=== PATIENT | female | born 1960 | race Caucasian/White ===

== ENCOUNTER 2020-12-26 17:06 | Emergency (ER) | payer OTHER | END 2020-12-26 19:44 | disposition left against medical advice (07) | LOC: ER 17:08 | DX: R22.40 Localized swelling, mass and lump, unspecified lower limb (principal); Z53.21 Procedure and treatment not carried out due to patient leaving prior to being seen by health care provider ==

== ENCOUNTER 2023-09-29 11:43 | Outpatient (CLI) | payer MEDICAID | END 2023-09-29 23:59 | disposition home or self-care (01) | LOC: RAD 11:43 | PROVIDERS: ATTEND Student in an Organized Health Care Education/Training Program | DX: M47.812 Spondylosis without myelopathy or radiculopathy, cervical region (principal); M43.22 Fusion of spine, cervical region; M48.02 Spinal stenosis, cervical region; M54.2 Cervicalgia | CPT/HCPCS: 72040 ==

== ENCOUNTER 2024-07-31 09:26 | Inpatient (IN) | payer MEDICAID ==
[~2024-07-31] VITALS: Ht 172.7 cm; Wt 83.5 kg
[2024-07-31 10:52] LABS: BASOPHILS # (AUTO) 0.1 X10'3 (0-0.2); BASOPHILS % (AUTO) 0.5 % (0-1); EOSINOPHILS # (AUTO) 0.1 X10'3 (0-0.9); EOSINOPHILS % (AUTO) 0.7 % (0-6); HEMATOCRIT 40.2 % (35.0-45.0); HEMOGLOBIN 13.7 g/dl (12.0-16.0); LYMPHOCYTES # (AUTO) 1.4 X10'3 (1.1-4.8); LYMPHOCYTES % (AUTO) 13.1 % (21-51); MEAN CORPUSCULAR HEMOGLOBIN 33.7 PG (27.0-31.0); MEAN CORPUSCULAR HGB CONC 34.2 g/dL (33.0-36.5); MEAN CORPUSCULAR VOLUME 98.6 FL (78-98); MEAN PLATELET VOLUME 7.9 FL (7.4-10.4); MONOCYTES # (AUTO) 0.6 X10'3 (0-0.9); MONOCYTES % (AUTO) 5.8 % (2-12); NEUTROPHILS # (AUTO) 8.3 X10'3 (1.8-7.7); NEUTROPHILS % (AUTO) 79.9 % (42-75); PLATELET COUNT 274 X10'3 (140-440); RED BLOOD COUNT 4.07 X10'6 (4.20-5.60); WHITE BLOOD COUNT 10.4 X10'3 (4.5-11.0)
[2024-07-31 11:26] LABS: ALBUMIN 3.2 G/DL (3.4-5.0); ANION GAP 6 (8-16); BLOOD UREA NITROGEN 13 MG/DL (7-18); CHLORIDE 103 MMOL/L (99-107); CREATININE 0.65 MG/DL (0.40-0.90); GLUCOSE 89 MG/DL (70-104); PRO BRAIN NATRIURETIC PEPTIDE 59 PG/ML (0-125); SODIUM 141 MMOL/L (135-145); TOTAL CARBON DIOXIDE 31.9 MMOL/L (24-32); eCRCL 88 ML/MIN; eGFR > 90 ML/MIN
[2024-07-31 11:40] LABS: POTASSIUM 4.2 MMOL/L (3.5-5.1)
[2024-07-31 13:18] LABS: ALANINE AMINOTRANSFERASE 42 U/L (12-78); ALBUMIN/GLOBULIN RATIO 0.7 (1.1-1.5); ALKALINE PHOSPHATASE 114 IU/L (46-116); BILIRUBIN,TOTAL 0.7 MG/DL (0.1-1.0); TOTAL PROTEIN 7.6 G/DL (6.4-8.2)
[2024-07-31 13:26] LABS: ASPARTATE AMINO TRANSFERASE 35 U/L (10-37)
[2024-07-31] MEDS: predniSONE 20 mg tablet PO ONE (13:36)
[2024-07-31] MEDS: albuterol 2.5 MG/3 ML nebule NEB ONE (13:51)
[2024-07-31 13:53] VITALS: PULSE 97; RESP 14; RESP 15; O2SAT 98
[2024-07-31] MEDS: CefTRIAXone/D5W-Rocephin 1gm 50 ML IV ONE (15:54)
[2024-07-31] MEDS ORDERED: potassium Cl 20 mEq SR tablet PO PRN ×2 (16:55)
[2024-07-31] MEDS ORDERED: acetaminophen 325mg tablet PO PRN (16:55)
[2024-07-31] MEDS ORDERED: potassium Cl 40MEQ/1/2NS 520ml 520 ML IV PRN (16:55)
[2024-07-31] MEDS ORDERED: magnesium Cl slow-release 64mg tablet PO PRN (16:55)
[2024-07-31] MEDS ORDERED: magnesium hydroxide 30ml (MOM) UD suspension PO PRN (16:55)
[2024-07-31] MEDS ORDERED: magnesium sulf-water 4G/100mL 100 ML IV PRN (16:55)
[2024-07-31] MEDS ORDERED: mag hydrox/Alum hydrox/simeth 30ml oral suspension PO PRN (16:55)
[2024-07-31] MEDS ORDERED: ondansetron/PF 4mg/2ml inj IV PRN (16:55)
[2024-07-31] MEDS ORDERED: magnesium sulf-water 2g/50mL 50 ML IV PRN (16:55)
[2024-07-31] MEDS ORDERED: ipratropium/albuterol 3ml nebule NEB PRN (17:00)
[2024-07-31] MEDS ORDERED: azithromycin/NS 500mg/250ml 250 ML IV ONE (17:00)
[2024-07-31 17:25] LABS: THYROID STIMULATING HORMONE 0.76 ulU/ml (0.34-4.50)
[2024-07-31 17:41] LABS: BILIRUBIN,URINE NEGATIVE (Neg); CLARITY,URINE CLEAR (Clear); COLOR,URINE YELLOW (Yellow); GLUCOSE, URINE NEGATIVE (Neg); KETONES,URINE 15 mg/dl (Neg); LEUKOCYTE ESTERASE ,URINE NEGATIVE (Neg); NITRITES, URINE NEGATIVE (Neg); OCCULT BLOOD,URINE NEGATIVE (Neg); PROTEIN,URINE NEGATIVE (Neg); UROBILINOGEN,URINE 0.2 E.U/dL (0.2-1.0)
[2024-07-31 17:47] LABS: UA COLLECTION TYPE CLN CATCH MIDSTREAM
[2024-07-31 18:00] VITALS: BP 140/74; PULSE 104; RESP 18; TEMP 98.3; O2SAT 93
[2024-07-31 19:12] LABS: D-DIMER 8.98 MG/L FEU (0-0.50); PROTHROMBIN TIME 10.4 SECONDS (9.0-12.0)
[2024-07-31] MEDS ORDERED: iohexol 350MG/ML 100ml bottle IV ONE (19:27)
[2024-07-31] MEDS ORDERED: iohexol 350 MG/ML 50ML vial IV ONE (19:27)
[2024-07-31] MEDS: nicotine 21mg patch - 24 hr TD SCH (19:30)
[2024-07-31] MEDS: ipratropium/albuterol 3ml nebule NEB SCH (19:59)
[2024-07-31 20:00] VITALS: PULSE 101; RESP 16; RESP 20; O2SAT 98
[2024-07-31] MEDS: K and/or MAG REPLACEMENT MC SCH (20:00)
[2024-07-31 20:05] VITALS: PULSE 98; RESP 20
[2024-07-31] MEDS ORDERED: TIOT18CA3 INH (21:09)
[2024-07-31] MEDS ORDERED: LEVO137T2 PO (21:09)
[2024-07-31] MEDS ORDERED: FLUT1BLS7 PO (21:09)
[2024-07-31] MEDS ORDERED: ALBU10.7 PO (21:09)
[2024-07-31] MEDS ORDERED: ATOR-2 PO (21:09)
[2024-07-31] MEDS ORDERED: CARV3.1244 PO (21:09)
[2024-07-31] MEDS ORDERED: BUSP15TA7 PO (21:09)
[2024-07-31] MEDS ORDERED: PREG100C56 PO (21:09)
[2024-07-31] MEDS ORDERED: VALS80TA32 PO (21:10)
[2024-07-31] MEDS: DOXYCYCLINE 100MG CAPSULE PO SCH (21:19)
[2024-07-31] MEDS: methylPREDNISolone sod succ/PF 40mg inj. IV SCH (21:19)
[2024-07-31 22:00] VITALS: BP 138/88; PULSE 93; RESP 17; TEMP 97.9; O2SAT 94
[2024-08-01] VITALS (15 sets, daily range): BP systolic 115–131; BP diastolic 66–75; PULSE 82–109; RESP 16–21; TEMP 96.9–98; O2SAT 85–99
[2024-08-01] MEDS: acetaminophen 325mg tablet PO PRN (04:37)
[2024-08-01 05:55] LABS: BASOPHILS % (AUTO) 0.2 % (0-1); EOSINOPHILS % (AUTO) 0 % (0-6); HEMATOCRIT 34.5 % (35.0-45.0); HEMOGLOBIN 11.9 g/dl (12.0-16.0); LYMPHOCYTES # (AUTO) 0.5 X10'3 (1.1-4.8); LYMPHOCYTES % (AUTO) 4.6 % (21-51); MEAN CORPUSCULAR HEMOGLOBIN 33.6 PG (27.0-31.0); MEAN CORPUSCULAR HGB CONC 34.4 g/dL (33.0-36.5); MEAN CORPUSCULAR VOLUME 97.7 FL (78-98); MEAN PLATELET VOLUME 7.9 FL (7.4-10.4); MONOCYTES # (AUTO) 0.2 X10'3 (0-0.9); MONOCYTES % (AUTO) 1.8 % (2-12); NEUTROPHILS # (AUTO) 10.4 X10'3 (1.8-7.7); NEUTROPHILS % (AUTO) 93.4 % (42-75); PLATELET COUNT 224 X10'3 (140-440); RED BLOOD COUNT 3.53 X10'6 (4.20-5.60); RED CELL DISTRIBUTION WIDTH 15.4 % (11.5-14.5); WHITE BLOOD COUNT 11.1 X10'3 (4.5-11.0)
[2024-08-01 06:30] LABS: ALANINE AMINOTRANSFERASE 27 U/L (12-78); ALBUMIN 2.5 G/DL (3.4-5.0); ALBUMIN/GLOBULIN RATIO 0.6 (1.1-1.5); ALKALINE PHOSPHATASE 94 IU/L (46-116); ANION GAP 10 (8-16); ASPARTATE AMINO TRANSFERASE 15 U/L (10-37); BILIRUBIN,TOTAL 0.5 MG/DL (0.1-1.0); BLOOD UREA NITROGEN 12 MG/DL (7-18); BUN/CREATININE RATIO 17.1 (10.0-20.0); CALCIUM 8.8 MG/DL (8.5-10.1); CHLORIDE 102 MMOL/L (99-107); CHOL/HDL RATIO 2.5 (0.00-4.99); CHOLESTEROL 153 MG/DL (0-200); GLUCOSE 153 MG/DL (70-104); HDL CHOLESTEROL 62 MG/DL (35-60); LDL CHOLESTEROL 72 MG/DL (50-100); MAGNESIUM 1.9 MG/DL (1.5-2.4); POTASSIUM 4.1 MMOL/L (3.5-5.1); SODIUM 138 MMOL/L (135-145); TOTAL CARBON DIOXIDE 25.7 MMOL/L (24-32); TOTAL PROTEIN 6.7 G/DL (6.4-8.2); TRIGLYCERIDES 64 MG/DL (20-135); eCRCL 82 ML/MIN; eGFR 84 ML/MIN
[2024-08-01] MEDS ORDERED: iohexol 350MG/ML 100ml bottle IV ONE (07:37)
[2024-08-01] MEDS ORDERED: azithromycin/NS 500mg/250ml 250 ML IV SCH (08:00)
[2024-08-01] MEDS: PERFLUTREN PROTEIN-A MICROSPHR (Optison) 0.22 MG/ML 3ML VIAL IV ONE (08:20)
[2024-08-01] MEDS: atorvastatin 20mg tablet PO SCH (09:43)
[2024-08-01] MEDS: apixaban 5mg tablet PO SCH (09:43)
[2024-08-01] MEDS: pregabalin 25mg capsule PO SCH (09:43)
[2024-08-01] MEDS: carVEDilol 3.125mg tablet PO SCH (09:44)
[2024-08-01] MEDS: losartan 50mg tablet PO SCH (09:44)
[2024-08-01] MEDS: levoTHYROXINE 112mcg tablet PO SCH (09:45)
[2024-08-01] MEDS: busPIRone 15mg tablet PO SCH (09:45)
[2024-08-01] MEDS: CefTRIAXone/D5W-Rocephin 1gm 50 ML IV SCH (09:46)
[2024-08-01] MEDS: levoTHYROXINE 25mcg tablet PO SCH (10:10)
[2024-08-01] MEDS: HEPARIN DRIP DVT/PE -**PHARMACIST TO DOSE IV ONE (10:27)
[2024-08-01] MEDS: heparin 10,000 units/1 ML INJ IV ONE (10:59)
[2024-08-01] MEDS: heparin 25,000 UNIT/250ml bag 250 ML IV PRN (11:00)
[2024-08-01] MEDS: MESSAGE TO NURSING IV ONE ×4 (11:00→18:43)
[2024-08-02] VITALS (8 sets, daily range): BP systolic 115–116; BP diastolic 69–71; PULSE 88–98; RESP 14–20; TEMP 97.8–98.2; O2SAT 90–100
[2024-08-02] MEDS: heparin 10,000 units/1 ML INJ IV PRN (02:04)
[2024-08-02] MEDS: MESSAGE TO NURSING IV ONE (03:14)
[2024-08-02 05:10] LABS: BASOPHILS % (AUTO) 0.1 % (0-1); EOSINOPHILS % (AUTO) 0 % (0-6); HEMATOCRIT 33.2 % (35.0-45.0); HEMOGLOBIN 11.1 g/dl (12.0-16.0); LYMPHOCYTES # (AUTO) 0.8 X10'3 (1.1-4.8); LYMPHOCYTES % (AUTO) 4.2 % (21-51); MEAN CORPUSCULAR HEMOGLOBIN 32.9 PG (27.0-31.0); MEAN CORPUSCULAR HGB CONC 33.4 g/dL (33.0-36.5); MEAN CORPUSCULAR VOLUME 98.6 FL (78-98); MEAN PLATELET VOLUME 8.3 FL (7.4-10.4); MONOCYTES # (AUTO) 0.8 X10'3 (0-0.9); MONOCYTES % (AUTO) 4.6 % (2-12); NEUTROPHILS # (AUTO) 16.4 X10'3 (1.8-7.7); NEUTROPHILS % (AUTO) 91.1 % (42-75); PLATELET COUNT 246 X10'3 (140-440); RED BLOOD COUNT 3.37 X10'6 (4.20-5.60); RED CELL DISTRIBUTION WIDTH 15.8 % (11.5-14.5)
[2024-08-02 05:23] LABS: ALANINE AMINOTRANSFERASE 29 U/L (12-78); ALBUMIN 2.4 G/DL (3.4-5.0); ALBUMIN/GLOBULIN RATIO 0.6 (1.1-1.5); ALKALINE PHOSPHATASE 82 IU/L (46-116); ANION GAP 7 (8-16); BILIRUBIN,TOTAL 0.3 MG/DL (0.1-1.0); BLOOD UREA NITROGEN 19 MG/DL (7-18); BUN/CREATININE RATIO 23.2 (10.0-20.0); CALCIUM 8.8 MG/DL (8.5-10.1); CHLORIDE 107 MMOL/L (99-107); CREATININE 0.82 MG/DL (0.40-0.90); GLUCOSE 154 MG/DL (70-104); MAGNESIUM 2.1 MG/DL (1.5-2.4); SODIUM 146 MMOL/L (135-145); TOTAL CARBON DIOXIDE 31.6 MMOL/L (24-32); TOTAL PROTEIN 6.1 G/DL (6.4-8.2); eCRCL 70 ML/MIN; eGFR 70 ML/MIN
[2024-08-02 05:24] LABS: ASPARTATE AMINO TRANSFERASE 24 U/L (10-37); POTASSIUM 4.8 MMOL/L (3.5-5.1)
[2024-08-02] MEDS ORDERED: levoTHYROXINE 25mcg tablet PO SCH (07:00)
[2024-08-02] MEDS: CefTRIAXone 2gm/D5W 50ml BAG 50 ML IV SCH (09:34)
[2024-08-02] MEDS: thiamine 100mg tablet PO SCH (11:18)
[2024-08-02] MEDS: folic acid 1mg tablet PO SCH (11:19)
[2024-08-02] MEDS ORDERED: CEFU500T66 PO (12:02)
[2024-08-02] MEDS ORDERED: DOXY-243 PO (12:02)
[2024-08-02] MEDS ORDERED: APIX5TAB3 PO (12:02)
[2024-08-02] MEDS ORDERED: LACT1CAP26 PO (12:02)
[2024-08-02] MEDS ORDERED: PRED10TA23 PO (12:02)
[2024-08-02] MEDS ORDERED: THIA50TA10 PO (12:03)
[2024-08-02] MEDS ORDERED: FOLI1TAB27 PO (12:03)
[2024-08-02] MEDS: apixaban 5mg tablet PO ONE (13:10)
[2024-08-03] MEDS ORDERED: APIX5TAB3 PO (07:35)
== END 2024-08-02 16:10 | disposition home or self-care (01) | DRG 140 ==
LOC: ER 09:26 → ED HOLD 15:18 → ORTHO 4S 17:52
PROVIDERS: ADMIT Family Medicine; ATTEND Family Medicine
DX: J44.1 Chronic obstructive pulmonary disease with (acute) exacerbation (principal); I26.99 Other pulmonary embolism without acute cor pulmonale; I82.433 Acute embolism and thrombosis of popliteal vein, bilateral; E03.9 Hypothyroidism, unspecified; E78.5 Hyperlipidemia, unspecified; Z20.822 Contact with and (suspected) exposure to COVID-19; F17.200 Nicotine dependence, unspecified, uncomplicated; I10 Essential (primary) hypertension; I82.451 Acute embolism and thrombosis of right peroneal vein; I82.441 Acute embolism and thrombosis of right tibial vein; Z88.1 Allergy status to other antibiotic agents; Z90.49 Acquired absence of other specified parts of digestive tract; Z90.710 Acquired absence of both cervix and uterus
CPT/HCPCS: 36415; 71046; 71275; 75635; 76700; 80053; 80061; 81003; 83605; 83735; 83880; 84145; 84443; 84484; 85025; 85379; 85610; 85730; 87040; 87081; 87502; 87503; 87811; 93005; 93306; 93922; 93925; 93970; 94640; 94760; 96365; 96375; 97161; 97530; 99285; A4615; A6212; A6449; G0378; J0696; J1644; J2919; J7030; J7512; Q9967